=== PATIENT | female | born 1985 | race African-American/Black ===

== ENCOUNTER 2022-07-21 05:06 | Emergency (ER) | payer SELFPAY ==
[~2022-07-21] VITALS: Ht 160 cm; Wt 103.6 kg
[2022-07-21 05:09] VITALS: TEMP 98.6
[2022-07-21 05:43] LABS: COLLECTION METHOD CLEAN CATCH
[2022-07-21 05:45] LABS: BASO # 0.1 K/mm3 (0.0-0.2); BASO % 0.6 % (0.0-2.0); EOS # 0.9 K/mm3 (0.0-0.7); EOS % 8.3 % (0.0-4.0); GRAN # 5.2 K/mm3 (1.4-6.5); GRAN % 49.2 % (42.2-75.2); HEMATOCRIT 37.8 % (37.0-47.0); HEMOGLOBIN 12.3 g/dl (12.5-16.0); LYMPH # 3.9 K/mm3 (1.2-3.4); LYMPH % 36.3 % (20.0-51.0); MEAN CELL VOLUME 88 fl (80.0-100.0); MEAN CORPUSCULAR HEMOGLOBIN 29 pg (27-31); MEAN CORPUSCULAR HGB CONC 33 g/dl (33.0-37.0); MEAN PLATELET VOLUME 10.2 fl (7.4-10.4); MONO # 0.6 K/mm3 (0.1-0.6); MONO % 5.2 % (1.7-9.3); PLATELET COUNT 303 K/mm3 (130-400); RED BLOOD COUNT 4.28 M/mm3 (4.10-5.30); REDCELL DISTRIBUTION WIDTH-CV 13.7 % (11.5-14.5)
[2022-07-21 05:57] LABS: MUCOUS Present (NOT PRESENT); URINE BACTERIA None Seen /hpf (NONE SEEN)
[2022-07-21 05:59] LABS: URINE APPEARANCE Clear (CLEAR/HAZY); URINE BLOOD Negative (NEGATIVE); URINE COLOR Red (YELLOW)
[2022-07-21 06:03] LABS: ANION GAP 12 mmol/L (7-16); BLOOD UREA NITROGEN 10 mg/dL (7-19); CALCIUM 9.7 mg/dL (8.4-10.2); CARBON DIOXIDE 20 mmol/L (22-29); CHLORIDE 104 mmol/L (98-107); CREATININE, serum 0.78 mg/dL (0.57-1.11); GLUCOSE 95 mg/dL (70-99); POTASSIUM 3.9 mmol/L (3.5-4.5); SODIUM 136 mmol/L (136-145)
[2022-07-21 06:10] VITALS: BP 138/87
[2022-07-21 06:10] LABS: TROPONIN-I < 0.010 ng/mL (0.00-0.033)
[2022-07-21] MEDS ORDERED: SINGULAIR 110 MG/TAB PO (06:20)
[2022-07-21] MEDS ORDERED: CEPHALEXIN500 M1 PO (06:20)
[2022-07-21] MEDS ORDERED: PREDNISONE20 MG PO (06:20)
[2022-07-21] MEDS ORDERED: PROAIR HFA0.09 MG/AC IH (06:20)
[2022-07-21 06:31] VITALS: PULSE 79
== END 2022-07-21 06:31 | disposition home or self-care (01) ==
LOC: COL.ER 05:06
PROVIDERS: Emergency Medicine
DX: R30.0 Dysuria (principal); J45.909 Unspecified asthma, uncomplicated; R03.0 Elevated blood-pressure reading, without diagnosis of hypertension; F17.290 Nicotine dependence, other tobacco product, uncomplicated; Z88.2 Allergy status to sulfonamides; Z88.1 Allergy status to other antibiotic agents
CPT/HCPCS: J7512